=== PATIENT | male | born 1955 | race Caucasian/White ===

== ENCOUNTER → 2023-04-12 06:37 | Outpatient (CLI) | payer BC, SELFPAY ==
[2023-04-12 08:31] LABS: BUN Creatinine Ratio 15.8 (6-22); Blood Urea Nitrogen 30 mg/dL (9-20); Carbon Dioxide 22 mmol/L (22-32); Chloride 109 mmol/L (98-107); Estimated Glomerular Filt Rate 38 mL/min (>60); Glucose 117 mg/dL (80-110); HEMOLYSIS < 15 (0-50); Potassium 4.3 mmol/L (3.4-5.1); Sodium 140 mmol/L (137-145)
== END ==
PROVIDERS: Referring Provider Physician Assistant; Visit Provider Physician Assistant
DX: N18.30 Chronic kidney disease, stage 3 unspecified (principal)
CPT/HCPCS: 36415; 80048

== ENCOUNTER 2023-05-18 08:11 | Emergency (ER) | payer BC, SELFPAY ==
[2023-05-18] VITALS (11 sets, daily range): BP systolic 109–178; BP diastolic 64–91; PULSE 49–67; RESP 11–21; TEMP 36.6; O2SAT 95–98; BMI 29.0
--- NOTE | 2023-05-18 08:34 | PC.NURSE ---
Patient reports a potentially near syncopal episode while briskly crossing the street two weeks ago. Patient states he had a very similar episode 4 yrs ago. This episode patient did not feel dizzy or light headed, denies chest pain, SOB or headache. Patient has no complaints at this time. Patient states he bikes and walks regularly with no difficulty. Negative FAST exam At time of fall sustained abrasions to bilateral hands. Healing within normal limits.
--- NOTE | 2023-05-18 08:38 | ED.SYNCOPE ---
HPI - Syncope General Chief Complaint: Syncope Stated Complaint: Dizzyness, Fall Time Seen by Provider: 05/18/23 08:19 Source: patient Mode of arrival: Ambulatory History of Present Illness HPI narrative: 67-year-old male with history of rheumatic fever as a child, chronic kidney disease stage 3, unknown cause presents by private vehicle from home for evaluation of a possible syncopal episode. Patient states that 4 years ago he had an episode where he fell after trying to increase his speed and run somewhere. He was adamant that he did not trip but was able to catch himself on the ground. He was not had an incidents since, but 2 weeks ago he had a similar incident when trying to increase his speed to make a [place] on time. He was not certain what happened, he again states that he did not trip and does not think he passed out, but states that he fell to the ground on outstretched hands. He has been unable to see a physician in the last 2 weeks due to his work schedule, but is able to be here today for evaluation. Denies chest pain, shortness of breath, lightheadedness, other complaints at this time. Related Data Allergies Allergy/AdvReac Type Severity Reaction Status Date / Time No Known Drug Allergies Allergy Verified 05/18/23 08:33 Review of Systems Review of Systems Narrative: Negative except as noted above Patient History Social History Smoking Status: Never smoker Smoking Status: Never smoker Substance Use Type: does not use Exam Initial Vital Signs Initial Vital Signs: Vital Signs Pulse Rate 66 05/18/23 08:26 Respiratory Rate 17 05/18/23 08:26 Pulse Oximetry 96 05/18/23 08:26 Const: Awake, alert, no acute distress, nontoxic appearing Cardiac: regular rate, regular rhythm RESP: unlabored, clear bilaterally, no wheezing GI: Soft, nontender, nondistended, no rebound, no guarding MSK: Atraumatic, full range of motion, pulses equal Skin: Warm, Dry, intact, no rashes Neuro: AO x3, CN II-XII grossly intact, moves all extremities, gait normal, no ataxia Course Orders Ordered: ED Orders 05/18/23 08:28 BNP [NT-proBNP (BNP-Adult 18+)] Stat CBC Auto Diff [Complete Blood Count AUTO DIFF] Stat CMP [Comprehensive Metabolic Panel] Stat PT [Prothrombin Time INR] Stat TSH [Thyroid Stimulating Hormone] Stat Troponin & CK Cardiac Panel Stat 05/18/23 08:37 Chest [XR chest 1V] Stat EC echo doppler complete Stat UA Complete [Urinalysis and Microscopic] Stat EKG-12 Lead Stat Vital Signs Vital signs: Vital Signs - 8 hr 05/18/23 10:30 05/18/23 11:00 05/18/23 11:30 Pulse Rate 53 L 49 L 50 L Respiratory Rate 11 L 18 14 Blood Pressure Pulse Oximetry 96 98 96 Oxygen Delivery Method 05/18/23 11:38 05/18/23 11:38 05/18/23 13:07 Pulse Rate 51 L 51 L Respiratory Rate 20 14 Blood Pressure 135/82 125/71 Pulse Oximetry 96 97 Oxygen Delivery Method Room Air MDM - Syncope Differential Diagnosis Differential diagnosis: Likely syncope due to orthostatic hypotension, vasovagal syncope and dehydration Lab Data 05/18/23 08:28 05/18/23 08:28 Labs: Lab Results 05/18/23 Range/Units 08:28 WBC 4.5 (4.5-11.0) X10^3/uL RBC 5.48 (4.5-5.9) X10^6/uL Hgb 16.3 (13.5-17.5) g/dL Hct 48.3 (41-53) % MCV 88.2 (80-100) fL MCH 29.7 (26-34) PG MCHC 33.7 (30-36) % RDW 14.4 (11.6-14.8) % Plt Count 276 (150-400) X10^3/uL Neut % (Auto) 68.9 (50-75) % Lymph % (Auto) 20.4 L (25-40) % [place] % (Auto) 7.1 (3-14) % Eos % (Auto) 3.2 (2-4) % Baso % (Auto) 0.4 (0-2) % Neut # (Auto) 3100 (9815-2486) /uL Lymph # (Auto) 900 L (6490-2693) /uL [place] # (Auto) 300 (0-900) /uL Eos # (Auto) 100 (0-450) /uL Baso # (Auto) 0 (0-100) /uL PT 11.4 (9.4-12.5) SECONDS INR 1.0 (0.9-1.3) Sodium 139 (137-145) mmol/L Potassium 4.2 (3.4-5.1) mmol/L Chloride 110 H (98-107) mmol/L Carbon Dioxide 23 (22-32) mmol/L BUN 36 H (9-20) mg/dL Creatinine 2.01 H (0.66-1.25) mg/dL Estimated GFR 36 L (>60) mL/min BUN/Creatinine Ratio 17.9 (6-22) Glucose 124 H (80-110) mg/dL Calcium 10.8 H (8.4-10.2) mg/dL Total Bilirubin 0.6 (0.2-1.3) mg/dL AST 47 (17-59) IU/L ALT 30 (<50) IU/L Alkaline Phosphatase 83 (38-126) U/L Total Creatine Kinase 320 H (55-170) U/L Troponin I 0.015 (0.01-0.034) ng/mL NT-Pro-B Natriuret Pep 52 (<125) pg/mL Total Protein 7.5 (6.3-8.2) g/dL Albumin 4.3 (3.5-5.0) g/dL Globulin 3.2 (1.7-4.1) g/dL Albumin/Globulin Ratio 1.3 (1.0-2.8) TSH 1.54 (0.47-4.68) uIU/mL Imaging Data Chest x-ray: Radiologist's Impression: PROCEDURE: XR CHEST 1V INDICATIONS: SYNCOPE TECHNIQUE: One view of the chest was acquired. COMPARISON: None. FINDINGS: Surgical changes and devices: None. Lungs and pleura: Lungs are clear. No pleural effusions or pneumothorax. Mediastinum: Mediastinal contours appear normal. Heart size is normal. Bones and chest wall: No suspicious bony lesions. Overlying soft tissues appear unremarkable. IMPRESSION: No acute cardiopulmonary abnormality is seen. Dictated by: Kennedy Meng M.D. on 05/18/2023 at 9:21 Approved by: Kennedy Meng M.D. on 05/18/2023 at 9:22 US - abdomen: Radiologist's Impression: [facility] +---------+ : : [address] : : : : [place] : : : : [id number] : : : : Phone: [phone]+ Echocardiogram Report + + :Name: NAKIA SILVA Study Date: 05/18/2023 Height: 73 in : :[facility] ReadingLocation: Weight: 208 lb : : Gender: Male BSA: 2.2 m2 : :: 1955 Age: 67 yrs BP: 112/69 mmHg: :Reason For Study: SYNCOPE, SYSTOLIC MURMUR : :Ordering Physician: MOOK, : :ERICKA Performed By: Cindy Oliva : :Referring: ERICKA DELVALLE : + + Interpretation Summary 1) Normal left ventricular thickness, size, wall motion, and systolic function (EF 60-65%). 2) Normal right ventricular size and function. 3) The aortic valve is mildly calcified but no significant stenosis is present. 4) There is mild aortic regurgitation. 5) No prior Echo available for comparison. Procedure: A two-dimensional transthoracic echocardiogram with color flow and Doppler was performed. The study quality was technically adequate. There is no prior echocardiogram noted for this patient. The patient was in sinus bradycardia with heart rates between 42-64 bpm during the exam. Left Ventricle: The left ventricle is normal in size. There is mild concentric left ventricular hypertrophy. The ejection fraction is estimated to be 60-65%. Left ventricular systolic function appears normal without focal wall motion abnormalities. Right Ventricle: The right ventricle is normal in size and function. Atria: The left atrium is moderately dilated. Right atrial size is normal. There is no Doppler evidence for an interatrial shunt. Mitral Valve: The mitral valve is normal in structure and function. There is trace mitral regurgitation. Aortic Valve: The aortic valve is mildly calcified. There is no aortic valve stenosis. There is mild aortic regurgitation. Tricuspid Valve: The tricuspid valve is normal in structure and function. There is trace tricuspid regurgitation. The right ventricular systolic pressure is estimated to be at least 25 mmHg based on an estimated right atrial pressure of 8 mm Hg. Pulmonic Valve: The pulmonic valve leaflets are thin and pliable; valve motion is normal. There is a trace or physiologic amount of pulmonic regurgitation. Great Vessels: The aortic root is normal size. The dimensions of the ascending aorta are normal. The IVC is of normal diameter and collapses less than 50% with a sniff. This suggests a right atrial pressure of 8 mm Hg. Pericardium/ Pleura There is no pericardial effusion. There is no pleural effusion. MMode/2D Measurements & Calculations LVIDd: 4.8 cm LVOT diam: 2.0 cm LVIDs: 3.6 cm Ao root diam: 3.7 cm FS: 25.1 % asc Aorta Diam: 3.5 cm IVSd: 1.3 cm LVPWd: 1.3 cm LV fritz. diameter/BSA (cm/m^2): 2.2 LV sys. diameter/BSA (cm/m^2): 1.6 LA A2 area: 26.4 cm2 RA long axis: 5.3 cm LA A4 area: 22.2 cm2 RA area: 17.4 cm2 LA length (vol): 6.1 cm RA vol: 48.6 ml LA vol: 82.0 ml RA : 22.2 ml/m2 LA vol index: 37.5 ml/m2 IVC diam: 2.1 cm RVD1 (basal): 3.8 cm RVD2 (mid): 2.9 cm TAPSE: 1.7 cm Doppler Measurements & Calculations Ao V2 max: 165.4 cm/sec LVOT Max Corona: 130.5 cm/sec Ao V2 mean: 114.0 cm/sec LV V1 max P.8 mmHg Ao max P.9 mmHg LV V1 VTI: 28.5 cm Ao mean P.8 mmHg BRENDA(I,D): 2.5 cm2 Ao V2 VTI: 34.3 cm BRENDA(V,D): 2.4 cm2 sev ratio: 0.83 BRENDA indexed to BSA (cm^2/m^2): 1.2 MV E max corona: 79.3 cm/sec TR max corona: 203.9 cm/sec MV A max corona: 43.1 cm/sec TR max P.6 mmHg MV E/A: 1.8 PA V2 max: 92.5 cm/sec Med Peak E' Corona: 7.6 cm/sec PA V2 mean: 69.0 cm/sec E/E' med: 10.5 PA mean P.1 mmHg Lat Peak E' Corona: 13.1 cm/sec PA pr(Accel): 48.2 mmHg E/E' lat: 6.1 E/e' average: 8.3 MV dec time: 0.18 sec SV(LVOT): 86.4 ml Reading Physician:01:03 PM [facility] Narrative Medical decision making narrative: Patient presenting for an abnormal event that occurred 2 weeks prior. Possible syncopal event, patient states that he fell without tripping and was alert before he made it to the ground and was able to catch himself on his hands. To total events over the last 4 years. Physical exam at this time is remarkable for a loud systolic murmur, however no neurologic deficits, patient was ambulatory without any ataxia. With questionable syncope in systolic murmur an echocardiogram was ordered to assess for aortic stenosis. Laboratory work normal, EKG negative for acute findings. Echo did not show any aortic stenosis, mild aortic regurgitation. Patient informed of all lab and imaging findings. Recommended follow up with Cardiology if he continues to experience symptoms. Patient states he was evaluated by cardiology several years in the past due to family history of coronary disease, but he was not seen them in several years since his initial workup was negative for any abnormalities. 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 Discharge Plan Departure Patient Disposition: Home Clinical Impression: Syncope Instructions: DI for Syncope in Adults (Fainting) Activity Restrictions/Additional Instructions: YOUR LABORATORY WORK TODAY WAS NORMAL. I DID NOT SEE ANY OBVIOUS ABNORMALITIES ON YOUR ECHOCARDIOGRAM. I HIGHLY RECOMMEND FOLLOWING UP WITH CARDIOLOGY FOR FURTHER INVESTIGATION OF THESE EPISODES. Referrals: Ac Bustamante MD [Physician] - Stand Alone Forms: Patient Portal/API
[2023-05-18 08:54] LABS: Prothrombin Time 11.4 SECONDS (9.4-12.5)
[2023-05-18 08:56] LABS: Add Manual Diff / Slide Review NO; Basophils Absolute Auto 0 /uL (0-100); Basophils Percent Auto 0.4 % (0-2); Eosinophils Absolute Auto 100 /uL (0-450); Eosinophils Percent Auto 3.2 % (2-4); Hematocrit 48.3 % (41-53); Hemoglobin 16.3 g/dL (13.5-17.5); Lymphocytes Absolute Auto 900 /uL (1100-4500); Lymphocytes Percent Auto 20.4 % (25-40); Mean Corpuscular HGB Conc 33.7 % (30-36); Mean Corpuscular Hemoglobin 29.7 PG (26-34); Mean Corpuscular Volume 88.2 fL (80-100); Monocytes Absolute Auto 300 /uL (0-900); Monocytes Percent Auto 7.1 % (3-14); Neutrophils Absolute Auto 3100 /uL (1500-7000); Neutrophils Percent Auto 68.9 % (50-75); Platelet Count 276 X10^3/uL (150-400); Red Blood Cell Count 5.48 X10^6/uL (4.5-5.9); Red Cell Distribution Width 14.4 % (11.6-14.8); White Blood Cell Count 4.5 X10^3/uL (4.5-11.0)
[2023-05-18 09:05] LABS: Alanine Aminotransferase 30 IU/L (<50); Albumin 4.3 g/dL (3.5-5.0); Albumin Globulin Ratio 1.3 (1.0-2.8); Alkaline Phosphatase 83 U/L (38-126); Aspartate Aminotransferase 47 IU/L (17-59); BUN Creatinine Ratio 17.9 (6-22); Bilirubin Total 0.6 mg/dL (0.2-1.3); Blood Urea Nitrogen 36 mg/dL (9-20); Calcium 10.8 mg/dL (8.4-10.2); Carbon Dioxide 23 mmol/L (22-32); Chloride 110 mmol/L (98-107); Creatine Kinase 320 U/L (55-170); Estimated Glomerular Filt Rate 36 mL/min (>60); Globulin 3.2 g/dL (1.7-4.1); Glucose 124 mg/dL (80-110); HEMOLYSIS < 15 (0-50); Potassium 4.2 mmol/L (3.4-5.1); Sodium 139 mmol/L (137-145); Total Protein 7.5 g/dL (6.3-8.2)
[2023-05-18 09:16] LABS: NT-proBNP (BNP-Adult 18+) 52 pg/mL (<125); Troponin I 0.015 ng/mL (0.01-0.034)
[2023-05-18 09:31] LABS: Thyroid Stimulating Hormone 1.54 uIU/mL (0.47-4.68)
--- NOTE | 2023-05-18 10:46 | PC.NURSE ---
Echo at bedside
--- NOTE | 2023-05-18 12:50 | PC.NURSE ---
patient does not complain of head pain from the fall. he has small abrasions on the right palm of his hand as he stretched the hand out when falling. He states that he does not recall passing out. He does recall putting his hands out to guard himself from the fall and does recall hitting his right shoulder. His shoulder is much better today according to the patient. He has full range of motion and does not complain of acute pain or injury.
== END 2023-05-18 13:09 | disposition home or self-care (01) ==
PROVIDERS: Emergency Provider Emergency Medicine
DX: R55 Syncope and collapse (principal); R42 Dizziness and giddiness; R07.9 Chest pain, unspecified
CPT/HCPCS: 36415; 71045; 80053; 82550; 83880; 84443; 84484; 85025; 85610; 93005; 93306; 99284

== ENCOUNTER → 2023-08-09 15:07 | Outpatient (CLI) | payer BC, OTHER, MEDICARE, SELFPAY ==
--- NOTE | 2023-08-09 | DI.NM.S_ITS ---
PROCEDURE: NM EXERCISE TREADMILL NON NUC COMPARISON: None. INDICATIONS: Syncope and collapse FINDINGS: Rest ECG sinus rhythm. Willy protocol 9:00, maximum heart rate 146 bpm (95% peak predicted), maximum blood pressure 194/90, 10.1 METS, SHILPA -16%. Exercise ECG sinus tachycardia, no ST segment changes, occasional PVCs. Brief salvos of atrial tachycardia noted in recovery. The patient did not complain of exercise-induced chest discomfort. IMPRESSION: Low risk study. No evidence of exercise-induced ischemia. Occasional PVCs with exertion and brief runs atrial tachycardia in recovery. Normal hemodynamic response. Good exercise capacity. Dictated by: Cecelia Hurtado D.O. on 08/10/2023 at 17:12 Approved by: Cecelia Hurtado D.O. on 08/10/2023 at 17:14
== END ==
PROVIDERS: Referring Provider Internal Medicine; Visit Provider Internal Medicine
DX: R55 Syncope and collapse (principal)
CPT/HCPCS: 93017

== ENCOUNTER → 2023-08-31 15:48 | Outpatient (CLI) | payer BC, OTHER, MEDICARE, SELFPAY ==
[2023-08-31 17:12] LABS: Add Manual Diff / Slide Review NO; Basophils Absolute Auto 100 /uL (0-100); Basophils Percent Auto 1.7 % (0-2); Eosinophils Absolute Auto 100 /uL (0-450); Eosinophils Percent Auto 2.7 % (2-4); Hematocrit 46.3 % (41-53); Hemoglobin 15.4 g/dL (13.5-17.5); Lymphocytes Absolute Auto 1200 /uL (1100-4500); Lymphocytes Percent Auto 22.9 % (25-40); Mean Corpuscular HGB Conc 33.4 % (30-36); Mean Corpuscular Hemoglobin 29.9 PG (26-34); Mean Corpuscular Volume 89.7 fL (80-100); Monocytes Absolute Auto 400 /uL (0-900); Monocytes Percent Auto 7.9 % (3-14); Neutrophils Absolute Auto 3400 /uL (1500-7000); Neutrophils Percent Auto 64.8 % (50-75); Platelet Count 284 X10^3/uL (150-400); Red Blood Cell Count 5.16 X10^6/uL (4.5-5.9); Red Cell Distribution Width 14.5 % (11.6-14.8); White Blood Cell Count 5.3 X10^3/uL (4.5-11.0)
[2023-08-31 17:31] LABS: Blood Urea Nitrogen 35 mg/dL (9-20); Calcium 9.9 mg/dL (8.4-10.2); Carbon Dioxide 19 mmol/L (22-32); Chloride 112 mmol/L (98-107); Estimated Glomerular Filt Rate 30 mL/min (>60); Glucose 98 mg/dL (80-110); HEMOLYSIS 17 (0-50); Potassium 4.5 mmol/L (3.4-5.1); Sodium 138 mmol/L (137-145)
== END ==
PROVIDERS: Referring Provider Physician Assistant; Visit Provider Physician Assistant
DX: R55 Syncope and collapse (principal)
CPT/HCPCS: 36415; 80048; 85025

== ENCOUNTER → 2023-10-26 13:44 | Outpatient (CLI) | payer OTHER, MEDICARE, BC, SELFPAY ==
[2023-10-26 15:27] LABS: Free T4, Direct Thyroxine 0.82 ng/dL (0.78-2.19)
[2023-10-26 15:41] LABS: Thyroid Stimulating Hormone 1.91 uIU/mL (0.47-4.68)
== END ==
PROVIDERS: Referring Provider Internal Medicine; Visit Provider Internal Medicine
DX: I48.0 Paroxysmal atrial fibrillation (principal)
CPT/HCPCS: 36415; 84439; 84443

== ENCOUNTER → 2023-11-07 10:05 | Outpatient (CLI) | payer OTHER, MEDICARE, BC, SELFPAY ==
[2023-11-07 10:38] LABS: Appearance Urine UA CLEAR; Bilirubin Urine UA NEGATIVE (NEGATIVE); Color Urine UA YELLOW; Glucose Urine UA 3+ g/dL (Negative); Ketones Urine UA NEGATIVE (NEGATIVE); Leukocyte Esterase Urine UA NEGATIVE (NEGATIVE); Nitrite Urine UA NEGATIVE (Negative); Occult Blood Urine UA TRACE-INTACT (Negative); Protein Urine UA 2+ (Negative); Urobilinogen Urine UA 0.2 E.U./dL (0.2); pH Urine UA 5.5 (4.5-8.0)
[2023-11-07 10:47] LABS: Bacteria Urine Occasional (0-1); Culture Indicated Urine Cult Not Indicated; RBC Urine 1-5/HPF (0-5/HPF); Squamous Epithelial Cell Urine 1-5 /HPF (0-5/HPF); Urine Volume 10mL (spun); WBC Urine 1-5/HPF (0-5/HPF)
[2023-11-07 11:10] LABS: Creatinine Urine Random 63.68 mg/dL; Protein (Total) Urine Random 101 mg/dL (0-12); Protein Creatinine Ratio Urine 1.58 GRAM/24H
[2023-11-07 11:39] LABS: Alanine Aminotransferase 39 IU/L (<50); Albumin Globulin Ratio 1.4 (1.0-2.8); Alkaline Phosphatase 107 U/L (38-126); Aspartate Aminotransferase 57 IU/L (17-59); BUN Creatinine Ratio 19.5 (6-22); Bilirubin Total 0.5 mg/dL (0.2-1.3); Blood Urea Nitrogen 40 mg/dL (9-20); Calcium 10.7 mg/dL (8.4-10.2); Carbon Dioxide 20 mmol/L (22-32); Chloride 109 mmol/L (98-107); Estimated Glomerular Filt Rate 35 mL/min (>60); Globulin 2.9 g/dL (1.7-4.1); Glucose 98 mg/dL (80-110); HEMOLYSIS < 15 (0-50); Magnesium 2.1 mg/dL (1.6-2.3); Phosphorous 3.2 mg/dL (2.3-3.7); Potassium 4.4 mmol/L (3.4-5.1); Sodium 136 mmol/L (137-145); Total Protein 6.9 g/dL (6.3-8.2)
[2023-11-07 11:45] LABS: Microalbumin Urine Random 63.6 mg/dL (0-1.6)
[2023-11-07 11:58] LABS: Vitamin D 25 Hydroxy (D3) 51.6 ng/mL (30.0-100.0)
== END ==
LOC: LAB 10:08
PROVIDERS: Referring Provider Internal Medicine Nephrology; Visit Provider Internal Medicine Nephrology
DX: N26.9 Renal sclerosis, unspecified (principal); N18.32 Chronic kidney disease, stage 3b; N25.81 Secondary hyperparathyroidism of renal origin
CPT/HCPCS: 36415; 80053; 81001; 82043; 82306; 82310; 82570; 83735; 83970; 84100; 84156

== ENCOUNTER → 2023-12-22 07:22 | Outpatient (CLI) | payer OTHER, MEDICARE, BC, SELFPAY ==
[2023-12-22 08:09] LABS: Appearance Urine UA CLEAR; Bilirubin Urine UA NEGATIVE (NEGATIVE); Color Urine UA YELLOW; Glucose Urine UA 3+ g/dL (Negative); Ketones Urine UA NEGATIVE (NEGATIVE); Leukocyte Esterase Urine UA NEGATIVE (NEGATIVE); Nitrite Urine UA NEGATIVE (Negative); Occult Blood Urine UA NEGATIVE (Negative); Protein Urine UA 1+ (Negative); Specific Gravity Urine UA 1.015 (1.000-1.035); Urobilinogen Urine UA 0.2 E.U./dL (0.2); pH Urine UA 5.5 (4.5-8.0)
[2023-12-22 08:24] LABS: Urine Volume 10mL (spun)
[2023-12-22 08:25] LABS: Bacteria Urine None Seen; Culture Indicated Urine Cult Not Indicated; RBC Urine None Seen (0-5/HPF); Squamous Epithelial Cell Urine None Seen (0-5/HPF); WBC Urine None Seen (0-5/HPF)
[2023-12-22 08:35] LABS: Alanine Aminotransferase 28 IU/L (<50); Albumin 4.2 g/dL (3.5-5.0); Albumin Globulin Ratio 1.7 (1.0-2.8); Alkaline Phosphatase 74 U/L (38-126); Aspartate Aminotransferase 42 IU/L (17-59); BUN Creatinine Ratio 15.8 (6-22); Bilirubin Total 0.7 mg/dL (0.2-1.3); Blood Urea Nitrogen 32 mg/dL (9-20); Calcium 10.5 mg/dL (8.4-10.2); Carbon Dioxide 26 mmol/L (22-32); Chloride 104 mmol/L (98-107); Estimated Glomerular Filt Rate 35 mL/min (>60); Globulin 2.5 g/dL (1.7-4.1); Glucose 85 mg/dL (80-110); HEMOLYSIS < 15 (0-50); Potassium 4.6 mmol/L (3.4-5.1); Sodium 136 mmol/L (137-145); Total Protein 6.7 g/dL (6.3-8.2)
[2023-12-22 08:45] LABS: Creatinine Urine Random 54.71 mg/dL; Protein (Total) Urine Random 74 mg/dL (0-12); Protein Creatinine Ratio Urine 1.35 GRAM/24H
[2023-12-22 09:14] LABS: Microalbumin Urine Random 34.1 mg/dL (0-1.6)
== END ==
PROVIDERS: Referring Provider Internal Medicine Nephrology; Visit Provider Internal Medicine Nephrology
DX: N18.32 Chronic kidney disease, stage 3b (principal)
CPT/HCPCS: 36415; 80053; 81001; 82043; 82570; 84156

== ENCOUNTER → 2024-01-22 07:49 | Outpatient (CLI) | payer OTHER, MEDICARE, BC, SELFPAY ==
[2024-01-22 09:24] LABS: Add Manual Diff / Slide Review NO; Basophils Absolute Auto 100 /uL (0-100); Basophils Percent Auto 1.7 % (0-2); Eosinophils Absolute Auto 200 /uL (0-450); Eosinophils Percent Auto 3.3 % (2-4); Hematocrit 47.6 % (41-53); Hemoglobin 15.8 g/dL (13.5-17.5); Lymphocytes Absolute Auto 1100 /uL (1100-4500); Lymphocytes Percent Auto 24.4 % (25-40); Mean Corpuscular HGB Conc 33.2 % (30-36); Mean Corpuscular Hemoglobin 29.8 PG (26-34); Mean Corpuscular Volume 89.6 fL (80-100); Monocytes Absolute Auto 300 /uL (0-900); Monocytes Percent Auto 6.7 % (3-14); Neutrophils Absolute Auto 2900 /uL (1500-7000); Neutrophils Percent Auto 63.9 % (50-75); Platelet Count 251 X10^3/uL (150-400); Red Blood Cell Count 5.31 X10^6/uL (4.5-5.9); White Blood Cell Count 4.5 X10^3/uL (4.5-11.0)
[2024-01-22 09:35] LABS: BUN Creatinine Ratio 16.6 (6-22); Blood Urea Nitrogen 33 mg/dL (9-20); Calcium 10.2 mg/dL (8.4-10.2); Carbon Dioxide 23 mmol/L (22-32); Chloride 109 mmol/L (98-107); Estimated Glomerular Filt Rate 36 mL/min (>60); Glucose 122 mg/dL (80-110); HEMOLYSIS < 15 (0-50); Potassium 4.3 mmol/L (3.4-5.1); Sodium 138 mmol/L (137-145)
== END ==
PROVIDERS: Referring Provider Internal Medicine Cardiovascular Disease; Visit Provider Internal Medicine Cardiovascular Disease
DX: I42.2 Other hypertrophic cardiomyopathy (principal)
CPT/HCPCS: 36415; 80048; 85025

== ENCOUNTER → 2024-03-27 07:19 | Outpatient (CLI) | payer OTHER, MEDICARE, BC, SELFPAY ==
[2024-03-27 07:53] LABS: Appearance Urine UA CLEAR; Bilirubin Urine UA NEGATIVE (NEGATIVE); Color Urine UA YELLOW; Glucose Urine UA 3+ g/dL (Negative); Ketones Urine UA NEGATIVE (NEGATIVE); Leukocyte Esterase Urine UA NEGATIVE (NEGATIVE); Nitrite Urine UA NEGATIVE (Negative); Occult Blood Urine UA NEGATIVE (Negative); Protein Urine UA TRACE (Negative); Specific Gravity Urine UA 1.015 (1.000-1.035); Urine Volume 10mL (spun); Urobilinogen Urine UA 0.2 E.U./dL (0.2); pH Urine UA 5.5 (4.5-8.0)
[2024-03-27 07:55] LABS: Bacteria Urine None Seen; Culture Indicated Urine Cult Not Indicated; RBC Urine None Seen (0-5/HPF); Squamous Epithelial Cell Urine None Seen (0-5/HPF); WBC Urine None Seen (0-5/HPF)
[2024-03-27 08:00] LABS: Add Manual Diff / Slide Review NO; Basophils Absolute Auto 100 /uL (0-100); Eosinophils Absolute Auto 100 /uL (0-450); Eosinophils Percent Auto 2.3 % (2-4); Hematocrit 49.5 % (41-53); Hemoglobin 16.5 g/dL (13.5-17.5); Lymphocytes Absolute Auto 1100 /uL (1100-4500); Lymphocytes Percent Auto 20.7 % (25-40); Mean Corpuscular HGB Conc 33.2 % (30-36); Mean Corpuscular Hemoglobin 29.4 PG (26-34); Mean Corpuscular Volume 88.4 fL (80-100); Monocytes Absolute Auto 400 /uL (0-900); Monocytes Percent Auto 7.4 % (3-14); Neutrophils Absolute Auto 3600 /uL (1500-7000); Neutrophils Percent Auto 68.6 % (50-75); Platelet Count 266 X10^3/uL (150-400); Red Cell Distribution Width 14.3 % (11.6-14.8); White Blood Cell Count 5.3 X10^3/uL (4.5-11.0)
[2024-03-27 08:11] LABS: HEMOLYSIS < 15 (0-50); Iron 92 ug/dL (49-181)
[2024-03-27 08:13] LABS: Alanine Aminotransferase 32 IU/L (<50); Albumin 4.5 g/dL (3.5-5.0); Albumin Globulin Ratio 1.7 (1.0-2.8); Alkaline Phosphatase 79 U/L (38-126); Aspartate Aminotransferase 39 IU/L (17-59); BUN Creatinine Ratio 17.1 (6-22); Bilirubin Total 0.4 mg/dL (0.2-1.3); Blood Urea Nitrogen 35 mg/dL (9-20); Calcium 10.3 mg/dL (8.4-10.2); Carbon Dioxide 23 mmol/L (22-32); Chloride 106 mmol/L (98-107); Creatinine Urine Random 22.58 mg/dL; Estimated Glomerular Filt Rate 35 mL/min (>60); Globulin 2.7 g/dL (1.7-4.1); Glucose 120 mg/dL (80-110); HEMOLYSIS < 15 (0-50); Magnesium 1.9 mg/dL (1.6-2.3); Phosphorous 2.8 mg/dL (2.3-3.7); Potassium 4.6 mmol/L (3.4-5.1); Protein (Total) Urine Random 54 mg/dL (0-12); Protein Creatinine Ratio Urine 2.39 GRAM/24H; Sodium 138 mmol/L (137-145); Total Protein 7.2 g/dL (6.3-8.2)
[2024-03-27 08:23] LABS: Percent Iron Saturation 26 % (20-50); Total Iron Binding Capacity 354 ug/dL (261-462); Transferrin 342 mg/dL (206-381)
[2024-03-27 08:30] LABS: Vitamin D 25 Hydroxy (D3) 47.9 ng/mL (30.0-100.0)
[2024-03-27 08:33] LABS: Microalbumin Urine Random 25.1 mg/dL (0-1.6)
[2024-03-27 08:48] LABS: Ferritin 53 ng/mL (18-464)
[2024-03-29 07:09] LABS: Calcium 10.1 mg/dL (8.6-10.2); Parathyroid Hormone, Intact 109 pg/mL (15-65)
== END ==
PROVIDERS: Referring Provider Internal Medicine Nephrology; Visit Provider Internal Medicine Nephrology
DX: N18.32 Chronic kidney disease, stage 3b (principal); N25.81 Secondary hyperparathyroidism of renal origin; D63.1 Anemia in chronic kidney disease
CPT/HCPCS: 36415; 80053; 81001; 82043; 82306; 82310; 82570; 82728; 83540; 83550; 83735; 83970; 84100; 84156; 85025